=== PATIENT | female | born 1985 | race Two or more races ===

== ENCOUNTER 2016-08-23 22:52 | Emergency (ER) | payer SELFPAY ==
[~2016-08-23] VITALS: Ht 160 cm; Wt 90.7 kg
[2016-08-23 23:10] VITALS: BP 105/57
--- NOTE | 2016-08-23 23:21 | PHYS DOC ---
Past Medical History Past Medical History: No Pertinent History Past Surgical History: Alcohol Use: None Drug Use: None Adult General Chief Complaint Chief Complaint: FLU SYMPTOM [facility] Patient is a 31 year old female who presents with fever, cough, congestion, body aches since yesterday. No interventions prior to arrival. Denies n/v/d, abdominal pain, urinary symptoms. Review of Systems Review of Systems Constitutional: fever and chills since yesterday Eyes: Denies change in visual acuity, redness, or eye pain HENT: Denies nasal congestion or sore throat Respiratory: Cough Cardiovascular: No additional information not addressed in HPI [] GI: Denies abdominal pain, nausea, vomiting, bloody stools or diarrhea : Denies dysuria or hematuria Musculoskeletal: Denies back pain or joint pain Integument: Denies rash or skin lesions Neurologic: Denies headache, focal weakness or sensory changes Endocrine: Denies polyuria or polydipsia [] Current Medications Current Medications Current Medications Medications (Trade) Dose Ordered Sig/Philip Start Time Stop Time Status Last Admin Dose Admin Acetaminophen (Tylenol) 650 mg 1X ONCE 08/23/16 23:45 08/23/16 23:46 DC 08/23/16 23:36 650 MG Allergies Allergies Allergies Coded Allergies Type Severity Reaction Last Updated Verified No Known Drug Allergies 07/15/15 No Physical Exam Physical Exam Constitutional: Well developed, well nourished, no acute distress, non-toxic appearance. HENT: Normocephalic, atraumatic, bilateral external ears normal, oropharynx moist, no oral exudates, nose normal. Eyes: PERRLA, EOMI, conjunctiva normal, no discharge. Neck: Normal range of motion, no tenderness, supple, no stridor. Cardiovascular:Heart rate regular rhythm, no murmur Lungs & Thorax: Bilateral breath sounds clear to auscultation Abdomen: Bowel sounds normal, soft, no tenderness, no masses, no pulsatile masses. Skin: Warm, dry, no erythema, no rash. Back: No tenderness, no CVA tenderness. Extremities: No tenderness, no cyanosis, no clubbing, ROM intact, no edema. Neurologic: Alert and oriented X 3, normal motor function, normal sensory function, no focal deficits noted. Psychologic: Affect normal, judgement normal, mood normal. [] Current Patient Data Vital Signs Vital Signs Date Time Temp Pulse Resp B/P Pulse Ox O2 Delivery O2 Flow Rate FiO2 08/23/16 23:10 100.2 119 16 97 Room Air 100.2 08/23/16 23:08 105/57 Lab Values Laboratory Tests Test 08/23/16 23:16 Influenza Type A Antigen Positive (NEGATIVE) Influenza Type B Antigen Negative (NEGATIVE) EKG EKG [] Radiology/Procedures Radiology/Procedures [] Impressions: Influenza A Course & Med Decision Making Course & Med Decision Making Pertinent Labs and Imaging studies reviewed. (See chart for details) [] Dragon Disclaimer Dragon Disclaimer This electronic medical record was generated, in whole or in part, using a voice recognition dictation system. Departure Departure Impression: Primary Impression: Influenza A Disposition: HOME, SELF-CARE Condition: STABLE Referrals: YRN GAVIRIA (PCP) Patient Instructions: Fever, Adult, Influenza, Adult, Ijcg-cl-[id number] Additional Instructions: Continue the Ibuprofen and/or Tylenol at home for fever. Drink plenty of fluids to prevent dehydration. Follow up with doctor in 1-2 days. Return if any problems or concerns FRANSICO CASTANO APRN Aug 23, 2016 23:21
[2016-08-23] MEDS ORDERED: ACETAMINOPHEN 325 MG TABLET. PO ONE (23:45)
[2016-08-23 23:53] LABS: OBC FLU VALID
== END 2016-08-24 00:26 | disposition home or self-care (01) ==
LOC: ER 22:52
DX: J09.X2 Influenza due to identified novel influenza A virus with other respiratory manifestations (principal)
CPT/HCPCS: 87804; 99284

== ENCOUNTER 2017-06-06 17:47 | Inpatient (IN) | payer SELFPAY ==
[~2017-06-06] VITALS: Ht 157.5 cm; Wt 108.4 kg
[2017-06-06] MEDS: IV RINGERS,LACTATED 1000ML 1,000 ML IV SCH (19:48)
[2017-06-06 20:47] LABS: HEMATOCRIT 34.2 % (36.0-47.0); HEMOGLOBIN 10.7 g/dL (12.0-15.5); RED BLOOD COUNT 4.73 x10^6/uL (3.50-5.40); RED CELL DISTRIBUTION WIDTH 34.5 % (11.5-14.5); WHITE BLOOD COUNT 10.5 x10^3/uL (4.0-11.0)
--- NOTE | 2017-06-06 22:08 | RAD ---
OB ultrasound the third trimester HISTORY: and pelvic pressure, no care Sonographic examination of the was performed and multiple static images were obtained. There is a single live intrauterine . The heartbeat is confirmed at 150 bpm. Visualization of structures is limited at this late gestational age. The stomach appears normal. The bladder appears normal. The amniotic fluid volume appears normal and the amniotic fluid index measures 0.8 cm. The measurements are as follows: BPD 9.7 cm 39 weeks 5 days Head circumference 34.6 cm 40 weeks 1 day Abdominal circumference 33.9 cm 37 weeks 5 days Femur length 7.3 cm 37 weeks 4 days Estimated size by ultrasound is 38 weeks 6 days estimated date of confinement is June 14, 2017. Estimated weight is 7 lbs. 9 oz. +/- 18 ounces. There is a posterior right lateral fundal placenta. There is a cephalic position. The cervix is not seen due to the cephalic position. IMPRESSION: 1. Single live intrauterine at 38 weeks 6 days gestational age by ultrasound. There is no accurate LMP or first trimester ultrasound to confirm appropriate growth. 2. Severe oligohydramnios. 2. Electronically signed by: Conor Justin III, MD (06/06/2017 10:05 PM) [facility]
[2017-06-07 01:33] VITALS: BP 113/70
[2017-06-07] MEDS: IV RINGERS,LACTATED 1000ML 1,000 ML IV SCH ×2 (08:00→15:35)
--- NOTE | 2017-06-07 10:29 | HP ---
ADMIT DATE: 06/07/2017 REASON FOR ADMISSION: No care, oligohydramnios at term. HISTORY OF PRESENT ILLNESS: This is a 32-year-old female, 4, para 3-0-0-3, at term with no real care, one visit at the [facility], who presented to Labor and Delivery last evening with complaints of pain. heart tracing was category 1 and Tocometer demonstrated no uterine contractions. The patient ultimately underwent a complete OB ultrasound, which was remarkable for a posterior fundal placenta, cephalic presentation and oligohydramnios. The patient denies any leakage of fluid. She is somewhat of a poor historian. She has multiple family members that are trying to assist in answering some of our questions today. She verbalizes some possible interest in a tubal ligation at the time of repeat section today. We have opted to secure the language line to review this with her and make sure she understands the implications of it. PAST OBSTETRICAL HISTORY: She has had 2 prior sections, 04/23/2013 and 07/12/2015. She also had a precipitous vaginal delivery of a 4 pound 15 ounce baby on 03/07/2014 when she was being prepped for a delivery. That was a girl, the other two were boys. Her largest child at was 8 pounds 4 ounces. Her last section 07/12/2015, she reportedly passed out when she was admitted and underwent an emergent section under general anesthesia. PAST MEDICAL HISTORY: Unremarkable. PAST SURGICAL HISTORY: section x 2. She denies any prior blood transfusions. SOCIAL HISTORY: Nonsmoker. FAMILY HISTORY: Noncontributory. DRUG ALLERGIES: No known drug allergies. MEDICATIONS: None. PHYSICAL EXAMINATION: VITAL SIGNS: She is 5 feet 2 inches tall, 238 pounds, giving her a BMI of 43.5. GENERAL: She is alert, in no acute distress. LUNGS: Without wheeze, rhonchi or crackles. ABDOMEN: Gravid, nontender. heart tracing 130, category 1. Tocometer demonstrates regular contractions. She has a well-healed Pfannenstiel scar what appears to be right at the pubic symphysis. PELVIC: Vaginal exam not indicated at this time. EXTREMITIES: Nontender. IMPRESSION: Term intrauterine , no care, history of section x 2, maternal obesity, oligohydramnios. PLAN: The patient will undergo repeat section, possible tubal ligation this afternoon at [facility]. Consent on the chart. We will confirm via the language line if the patient does not desire future children. Dr. Espinoza has kindly agreed to assist with this patient's surgery at lunchtime. ANDREW MURCIA DO DR: JOHN/tim JOB#: [id number] / [id number]
[2017-06-07] MEDS ORDERED: ceFAZolin 2GM PREMIX 2 GM/50 ML BAG IV ONE (12:00)
[2017-06-07] MEDS ORDERED: KETOROLAC 30 MG/ML INJ. IV PRN (12:15)
[2017-06-07] MEDS ORDERED: CITRIC ACID/SODIUM CITRATE 30 ML SOLUTION. PO ONE (12:15)
[2017-06-07] MEDS ORDERED: MORPHINE PF 5 MG/10 ML VIAL. ONE (12:25)
[2017-06-07] MEDS ORDERED: fentaNYL PF VIAL 100 MCG/2 ML VIAL ONE (12:43)
[2017-06-07] MEDS ORDERED: OXYTOCIN 10 UNIT/ML VIAL. ONE (13:02)
[2017-06-07] MEDS ORDERED: METOCLOPRAMIDE HCL 10 MG/2 ML VIAL. ONE (13:59)
[2017-06-07] MEDS ORDERED: PHENYLEPHRINE in 0.9% NACL PF 1 MG/10 ML SYRINGE. IV ONE (13:59)
[2017-06-07] MEDS ORDERED: FAMOTIDINE 20 MG/2 ML VIAL ONE (13:59)
[2017-06-07] MEDS ORDERED: 0.9 % SODIUM CHLORIDE 50 ML VIAL. IJ ONE (13:59)
[2017-06-07] MEDS ORDERED: ONDANSETRON PF 4 MG/2 ML VIAL. ONE (13:59)
[2017-06-07] MEDS ORDERED: LIDOCAINE 1% PF 5 ML VIAL. ONE (13:59)
[2017-06-07] MEDS ORDERED: DEXAMETHASONE SOD PHOS 20 MG/5 ML VIAL. ONE (13:59)
[2017-06-07 16:45] LABS: BILIRUBIN,URINE NEGATIVE (NEG); GLUCOSE,URINE NEGATIVE (NEG); NITRITE,URINE NEGATIVE (NEG); PROTEIN,URINE NEGATIVE (NEG-TRACE)
--- NOTE | 2017-06-07 17:00 | OP ---
DATE OF SURGERY: 06/07/2017 PREOPERATIVE DIAGNOSES: Intrauterine 38 and 6/7 weeks' gestation, history of section x 2, oligohydramnios, no care, anemia, maternal obesity, undesired fertility. POSTOPERATIVE DIAGNOSES: Intrauterine 38 and 6/7 weeks' gestation, history of section x 2, oligohydramnios, no care, anemia, maternal obesity, undesired fertility, pelvic adhesions, meconium stained amniotic fluid. SURGEON: Andrew Gramajo DO PLASTIC PRESS MOLDER: Dr. Espinoza. PROCEDURE: Repeat section, lysis of adhesions and bilateral tubal ligation. DESCRIPTION OF PROCEDURE: After informed consent, the patient was taken to the operating room with an IV running. Spinal anesthesia placed by Anesthesia. She was then placed in the dorsal supine position with a leftward tilt, displacing the uterus. Martinez catheter was placed under sterile technique by nursing staff. Compression stockings placed on lower extremities for deep venous thrombosis prophylaxis. Preoperative antibiotics infused. Timeout procedure was performed in the customary manner. The patient was then prepped and draped in the usual sterile fashion. Her spinal block was found to be excellent for surgical anesthesia. She had a well-healed Pfannenstiel scar approximately 2 fingerbreadths above the pubic symphysis. The scar was excised with a scalpel, carried through the skin and subcutaneous layer to the fascia. The fascia was then both bluntly and sharply dissected. Oumar clamp was placed on the superior aspect of the fascia. Using electrocautery the rectus abdominal muscles were from the fascia. Tissue planes were somewhat challenging due to the patient's prior deliveries x 2 and therefore scar tissue was encountered. Oumar clamps x 2 were then placed on the lower edge of the fascia, which was tented upward, retracted caudally and using once again the electrocautery the rectus abdominal muscles were from the fascia. Staying high on the abdomen, rectus abdominal muscles were . Ultimately, we were able to enter the abdomen bluntly. Omental adhesions were noted. They were fairly dense. Retractor was placed retracting the fascial edge once again caudally. The rectus abdominal muscles were taken down in layers with a heavy Ocampo scissors. At this point, we were able to bluntly extend the incision. Bladder blade was then positioned. Staying well above the vesicouterine peritoneal reflection, a transverse uterine incision was made with a scalpel. Upon entry of the uterine cavity, hysterotomy was bluntly extended with digital traction. Head was then grasped, elevated through the level of hysterotomy and delivered atraumatically as well as the shoulders and out coming torso. The infant was meconium stained. There was essentially no amniotic fluid noted. The oronasopharynx were bulb suctioned. Umbilical cord was then doubly clamped, transected with the bandage scissors and a liveborn male was passed off to nursing staff who were present for delivery. Subsequent Apgars assigned by nursing staff of 8 and 9, weight is pending at the time of dictation. Cord blood and cord gases were drawn. Placenta was then manually extracted, Schultze presentation, three vessel cord and again the placenta was noted to be meconium stained. Placenta was sent to surgical pathology. Uterus was then exteriorized and wiped clear of any clots and debris. A moist laparotomy sponge was placed on the fundus of the uterus for traction. Oxytocin was infused. Uterus was then closed with 0 Vicryl in a continuous interlocking fashion. Reinspected the incision and found some small areas that were still bleeding. These were addressed with several [id number] stitches of 0 Vicryl suture with subsequent hemostasis obtained. Martinez bulb was palpable. We were well above the bladder flap. Urine was scant, but clear with no blood in the Martinez catheter bag. At this point, we proceeded with the tubal ligation portion of the procedure. The right fallopian tube was grasped with a Kelvin clamp, tented upward and using electrocautery a window was created along the mesosalpinx. A free tie of 0 plain suture was placed distal and proximal segment of the tube, which was then excised with a Metzenbaum scissors. The contralateral fallopian tube was addressed in a similar fashion with hemostasis assured bilaterally. Tubal segments were labeled right and left and sent to surgical pathology as well. The patient had some prominent adhesions along the left side of the uterus containing omentum and extending to the left round ligament. This was addressed with electricity cautery to free the adhesions up. Once again, hemostasis was assured. Posterior cul-de-sac was then wiped clear of any clots and debris. Reinspection of the uterine incision found it to be hemostatic. Uterus was returned to its anatomical position. The adnexal structures were inspected and found to be hemostatic. Additionally, the ovaries were grossly normal bilaterally on inspection. Tomasz was placed over the uterus and uterine incision. The bowel and omentum returned to their anatomical position. Peritoneum was then reapproximated in midline with single stitch of 0 Vicryl suture. Using FloSeal and the remaining Tomasz, the rectus abdominal muscles were found to be hemostatic. The fascia was then closed from left to right meeting in the midline. Subcutaneous layer was irrigated, wiped clear of any clots and debris. Once again, hemostasis in the subcutaneous layer was assured. Skin there was then reapproximated with skin claire and a pressure dressing was applied. All sponge and needle counts were correct x 3 per nurse staff in attendance. The patient tolerated the procedure well. ANESTHESIA: Spinal. PATHOLOGY SPECIMEN: Placenta, right and left fallopian tube. COMPLICATIONS: None apparent. DISPOSITION: Mother stable to recovery room, infant to the full term nursery. ANDREW GRAMAJO DO DR: JOHN/tim JOB#: [id number] / [id number]
[2017-06-07 17:04] LABS: BACTERIA,URINE 0 /HPF (0-FEW); SQUAMOUS EPITHELIAL CELL,UR OCC /LPF; WBC,URINE OCC /HPF (0-4)
[2017-06-07 17:14] VITALS: BP 113/70
[2017-06-07 17:40] VITALS: BP 119/78
[2017-06-07 21:53] VITALS: BP 95/55
[2017-06-08 01:00] VITALS: BP 102/56
[2017-06-08] MEDS: IV RINGERS,LACTATED 1000ML 1,000 ML IV SCH (01:06)
[2017-06-08 06:30] VITALS: BP 104/58
[2017-06-08] MEDS: oxyCODONE/APAP 5/325 1 TAB TABLET PO PRN ×3 (10:36→15:21)
[2017-06-08 11:45] VITALS: BP 93/58
[2017-06-08] MEDS ORDERED: SIMETHICONE 80 MG TAB.CHEW PO PRN (14:45)
[2017-06-08 15:20] VITALS: BP 103/68
[2017-06-08] MEDS: DOCUSATE SODIUM 100 MG CAPSULE. PO PRN (15:20)
[2017-06-08] MEDS: IBUPROFEN 800 MG TABLET. PO PRN (15:21)
[2017-06-08 15:44] LABS: HEMATOCRIT 31.1 % (36.0-47.0); HEMOGLOBIN 9.6 g/dL (12.0-15.5); RED BLOOD COUNT 4.26 x10^6/uL (3.50-5.40); RED CELL DISTRIBUTION WIDTH 35.1 % (11.5-14.5); WHITE BLOOD COUNT 15.4 x10^3/uL (4.0-11.0)
[2017-06-08] MEDS ORDERED: FERROUS SULFATE 325 MG TABLET. PO SCH (17:00)
--- NOTE | 2017-06-08 17:26 | PDOC ---
Provider Note Provider Note Doing well VSS Dressing CDI FU in AM JUSTINO ZHENG MD Jun 08, 2017 17:26
[2017-06-08 19:35] VITALS: BP 102/65
[2017-06-09 05:55] VITALS: BP_SYST 107; BP_SYST 110; BP_DIAS 74; BP_DIAS 75
[2017-06-09] MEDS: IBUPROFEN 800 MG TABLET. PO PRN ×2 (06:00→15:26)
[2017-06-09 08:00] VITALS: BP 108/73
[2017-06-09 15:15] VITALS: BP 118/71
[2017-06-09 20:00] VITALS: BP 110/73
[2017-06-09] MEDS: oxyCODONE/APAP 5/325 1 TAB TABLET PO PRN (20:13)
[2017-06-09] MEDS: DOCUSATE SODIUM 100 MG CAPSULE. PO PRN (20:13)
[2017-06-10 06:02] VITALS: BP 116/80
[2017-06-10] MEDS: IBUPROFEN 800 MG TABLET. PO PRN ×2 (06:08→14:21)
[2017-06-10] MEDS ORDERED: MEASLES, MUMPS & RUBELLA VACC 0.5 ML VIAL. VAX SQ ONE (08:00)
[2017-06-10 08:05] VITALS: BP 115/80
[2017-06-10 14:20] VITALS: BP 106/73
[2017-06-10] MEDS: oxyCODONE/APAP 5/325 1 TAB TABLET PO PRN (14:21)
--- NOTE | 2017-06-10 15:05 | PDOC3 ---
OB DISCHARGE SUMMARY DATE OF ADMISSION: 06/07/17 DATE OF DISCHARGE: 06/10/17 REASON FOR ADMISSION: PPROM, section PROCEDURES: Ultrasound, None INTRAPARTUM PROCEDURES: : Low Cerv Trans OPERATIONS: None DISCHARGE DIAGNOSIS: Term Delivered DISCHARGE INFORMATION: Activity, Diet HOSPITAL COURSE unremarkable CONDITION AT DISCHARGE Stable JUSTINO ZHENG MD Jun 10, 2017 15:05
[2017-06-10] MEDS ORDERED: OXYC-323 PO (15:07)
[2017-06-10] MEDS ORDERED: NAPR-683 PO (15:07)
--- NOTE | 2017-06-11 14:25 | PATHOLOGY ---
PATHOLOGY REPORT * * * * * * * * FINAL DIAGNOSIS: A. 522 gram term placenta of an estimated 39 weeks gestation with attached membranes and separate and attached segments of umbilical cord: - Pigmented macrophages within placental membranes consistent with meconium staining. - Infarct of small accessory lobe. B. Right tubal ligation: - Segment of fallopian tube confirmed. C. Left tubal ligation: - Segment of fallopian tube confirmed. COMMENT: There is no evidence of an acute chorioamnionitis or villitis. (JPM:db; 06/11/2017) REPORT ELECTRONICALLY SIGNED BY: Drew Ibrahim M.D. DATE/TIME: 06/11/2017 14:23 * * * * * * * * GROSS PATHOLOGY: A. Received in formalin labeled "Sanchez Gore, placenta" is a flynn placenta with attached membranes and umbilical cord. The placental disc measures 17.2 x 16.2 x 2.8 cm. The membranes are green tinged, transparent and thin with the site of membrane rupture 2.8 cm from the placental margin. There is a lawler-white ovoid firm area within the membranes, located 2.5 cm from the placental margin, which measures 2.0 x 1.3 x 0.3 cm. The membranes have marginal insertion. The umbilical cord measures 9.5 cm in length, 1.2 cm in diameter, contains three vessels and inserts eccentrically, 4.8 cm from the closest placental margin. There are no true knots in the umbilical cord. There is a separate portion of umbilical cord present within the container, which has a plastic clamp at both ends, and measures 29.8 cm in length and 1.5 cm in diameter. The trimmed placental weight is 522 grams. The surface is green tinged with minimal subchorionic fibrin. Amnion nodosum is not present. Cysts are not present. The maternal surface has intact cotyledons and no basal hemorrhage. Sectioning through the placental disc reveals no obvious acute or chronic infarcts. Sections are submitted as follows: A1 proximal and distal umbilical cord A2 membranes, rolled and dental detail representative firm area A3 dental detail representative peripheral placenta A4 dental detail representative central placenta B. Received in formalin labeled "Sanchez Gore, right fallopian tube" is a segment of pink-lawler soft tissue without fimbria measuring 2.0 cm in length and 0.6 cm in diameter. The specimen is serially sectioned to reveal a pinpoint lumen. No gross abnormalities are identified. The specimen is submitted entirely in cassette B1. C. Received in formalin labeled "Sanchez Gore, left fallopian tube" is a segment of pink-lawler soft tissue without fimbria measuring 3.1 cm in length and 0.7 cm in diameter. The specimen is serially sectioned to reveal a pinpoint lumen. No gross abnormalities are identified. The specimen is submitted entirely in cassette C1. [place] [place] INITIAL CPT CODE(S): A; 98081 B; 46206 C; 67132 Professional services performed by [facility] at [address] [address] Technical services performed by [facility] at [address] [place] [address], [address], [place] [address]. SPECIMEN(S) RECEIVED: A.Placenta B.Right fallopian tube C.Left fallopian tube CLINICAL HISTORY: Repeat with bilateral tubal ligation, oligohydramnios, no care, , EDC 06/02/17, 7lb 14oz male @ 1315 on 06/07/17, apgars 8-9-9, heavy meconium PATIENT: SANCHEZ GORE /AGE: 801/29/1985 (Age: 32) PATIENT #: [id number] ALT CASE #: SPECIMEN COLLECTION DATE: 06/07/2017 SPECIMEN RECEIVED DATE: 06/08/2017 [facility] - [address] [place] [address] - PHONE: [phone] * * * END OF REPORT * * *
== END 2017-06-10 16:00 | disposition home or self-care (01) | DRG 765 ==
LOC: 3 SO LND 17:47 → OBSVTOIN 17:47 → INTOOBSV 17:47 → 3 SO LND 18:28
PROC: 10D00Z1 Extraction of Products of Conception, Low, Open Approach (ICD-10-PCS; principal; 2017-06-07)
PROC: 0UB70ZZ Excision of Bilateral Fallopian Tubes, Open Approach (ICD-10-PCS; 2017-06-07)
DX: O34.211 Maternal care for low transverse scar from previous cesarean delivery (principal); Z68.41 Body mass index [BMI] 40.0-44.9, adult; O33.9 Maternal care for disproportion, unspecified; O41.00X0 Oligohydramnios, unspecified trimester, not applicable or unspecified; O77.0 Labor and delivery complicated by meconium in amniotic fluid; O42.919 Preterm premature rupture of membranes, unspecified as to length of time between rupture and onset of labor, unspecified trimester; Z3A.39 39 weeks gestation of pregnancy; O99.02 Anemia complicating childbirth; D64.9 Anemia, unspecified; O99.214 Obesity complicating childbirth; E66.9 Obesity, unspecified; Z37.0 Single live birth; Z30.2 Encounter for sterilization
CPT/HCPCS: 36415; 76805; 81001; 85027; 86593; 86762; 86850; 86900; 86901; 87340; 88302; 88307; 90707; J0690; J1100; J1885; J2270; J2370; J2405; J2590; J2765; J3010; J7120; S0028